=== PATIENT | female | born 1995 | race African-American/Black ===

== ENCOUNTER 2018-01-02 23:56 | Emergency (ER) | payer OTHER ==
[~2018-01-02] VITALS: Ht 157.5 cm; Wt 49.9 kg
[2018-01-03 00:01] VITALS: BP 104/74
== END 2018-01-03 00:24 | disposition home or self-care (01) ==
LOC: ER 23:56
DX: R59.9 Enlarged lymph nodes, unspecified (principal); J02.0 Streptococcal pharyngitis
CPT/HCPCS: A4606; Z7610

== ENCOUNTER 2021-01-13 23:10 | Emergency (ER) | payer OTHER ==
[~2021-01-13] VITALS: Ht 157.5 cm; Wt 61.2 kg
--- NOTE | 2021-01-13 23:20 | NUR ---
PATIENT BIBSELF C/O SWOLLEN SORE THROAT, FEVER, CHILLS X1 DAY. PATIENT IS AFEBRILE TEMP 98.9. PATIENT A/OX 4, RR EVEN AND UNLABORED, NO SIGNS OF SOB. PATIENT CONNECTED TO MONITOR, VSS. WILL CONTINUE TO MONITOR.
[2021-01-13] MEDS ORDERED: ACETAMINOPHEN 325 MG TABLET PO ONE (23:30)
[2021-01-13] MEDS ORDERED: ACETAMINOPHEN 325 MG TABLET ONE (23:32)
--- NOTE | 2021-01-13 23:42 | NUR ---
COVID AND INFLUENZA SWAB COLLECTED AND SEND TO LAB
--- NOTE | 2021-01-14 00:27 | NUR ---
CALL FROM LAB. RAPID COVID NEGATIVE.
[2021-01-14 00:44] VITALS: BP 118/68
--- NOTE | 2021-01-14 00:44 | NUR ---
Patient discharged to home in stable condition. Written and verbal after care instructions given. Patient verbalizes understanding of instruction.
== END 2021-01-14 00:44 | disposition home or self-care (01) ==
LOC: ER 23:10
DX: J06.9 Acute upper respiratory infection, unspecified (principal); Z20.822 Contact with and (suspected) exposure to COVID-19; Z59.0 Homelessness
CPT/HCPCS: 87426; 87804; 99283; C9803